=== PATIENT | male | born 1970 | race Caucasian/White ===

== ENCOUNTER 2020-07-11 12:43 | Emergency (ER) | payer BC ==
[2020-07-11] MEDS ORDERED: Lidocaine 1% w/Epinephrine 1:100K 20 ML VIAL ONE (13:04)
[2020-07-11] MEDS ORDERED: Bacitracin 1 PK ONE (13:29)
== END 2020-07-11 13:35 | disposition home or self-care (01) ==
LOC: MADERS 12:43
DX: S51.812A Laceration without foreign body of left forearm, initial encounter (principal); W26.0XXA Contact with knife, initial encounter
CPT/HCPCS: 12001